=== PATIENT | female | born 2000 | race Caucasian/White ===

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

== ENCOUNTER → 2023-07-04 | Outpatient (CLI) | payer BC ==
[2023-07-04 18:08] LABS: Cat Epith & Dander IgE <0.10 kU/L; Dog Dander IgE <0.10 kU/L; Egg White IgE <0.10 kU/L; Peanut IgE <0.10 kU/L; Shrimp IgE <0.10 kU/L; Soybean IgE <0.10 kU/L
[2023-07-05 14:06] LABS: Carrot IgE <0.10 kU/L (<0.10); Carrot IgE Class CLASS 0; Pea IgE (Grn) <0.10 kU/L (<0.10); Pea(Grn) IgE Class CLASS 0; Pork IgE Class CLASS 0; Salmon IgE <0.10 kU/L (<0.10); Salmon IgE Class CLASS 0
[2023-07-05 14:07] LABS: Avocado Class CLASS 0; Oat IgE Class CLASS 0
[2023-07-05 14:08] LABS: Banana IgE Class CLASS 0; Green Bean IgE <0.10 kU/L (<0.10); Green Bean IgE Class CLASS 0; Latex IgE Class CLASS 0
== END | disposition home or self-care (01) ==
LOC: LABWHC1 07:57
PROVIDERS: ATTEND Allergy & Immunology
DX: K21.9 Gastro-esophageal reflux disease without esophagitis (principal); R10.9 Unspecified abdominal pain; R11.10 Vomiting, unspecified
CPT/HCPCS: 36415; 82784; 83516; 86003

== ENCOUNTER 2023-08-08 19:56 | Emergency (ER) | payer BC ==
--- NOTE | 2023-08-08 20:22 | ED ---
General Adult HPI - General Chief complaint: Extremity Injury, Upper Stated complaint: Fall, L Elbow Injury Time Seen by Provider: 08/08/23 20:08 Source: patient, RN notes reviewed, old records reviewed Mode of arrival: ambulatory Limitations: no limitations - History of Present Illness Initial comments: 22-year-old female with slip and fall on ice with left elbow injury. Patient fell directly onto the left elbow, no other injury reported - Related Data Home Medications Medication Instructions Recorded Confirmed Control 1 tab PO DAILY 07/10/16 Melatonin 3 mg PO HS PRN 07/10/16 07/10/16 Previous Rx's Medication Instructions Recorded HYDROcodone/APAP 5-325MG [H[place] 5] 1 - 2 each PO Q4H PRN #20 tab 07/10/16 Allergies Allergy/AdvReac Type Severity Reaction Status Date / Time CERTAIN FOODS AdvReac Diarrhea Uncoded 08/08/23 20:12 SEASONAL AdvReac Cough Uncoded 08/08/23 20:12 Review of Systems ROS Statement: Those systems with pertinent positive or pertinent negative responses have been documented in the HPI. ROS Other: All systems not noted in ROS Statement are negative. Past Medical History Additional Past Medical History / Comment(s): THYROGLOSAL DUCT CYST AT 8 MO. OF AGE. History of Any Multi-Drug Resistant Organisms: MRSA Date of last positivie culture/infection: 05/15/23 MDRO Source:: Buttock Additional Past Surgical History / Comment(s): THYROGLOSAL DUCT CYST AT 8 MO. OLD Past Anesthesia/Blood Transfusion Reactions: No Reported Reaction Past Psychological History: Anxiety, Depression Smoking Status: Never smoker Past Alcohol Use History: None Reported Past Drug Use History: Marijuana General Exam Limitations: no limitations General appearance: alert, in no apparent distress Head exam: Present: atraumatic, normocephalic Eye exam: Present: normal appearance, PERRL Neck exam: Present: normal inspection. Absent: tenderness, meningismus Respiratory exam: Present: normal lung sounds bilaterally. Absent: respiratory distress, wheezes Cardiovascular Exam: Present: regular rate, normal rhythm GI/Abdominal exam: Present: soft. Absent: distended, tenderness Extremities exam: Present: full ROM, tenderness (Ecchymosis over the left elbow, distal pulses intact) Neurological exam: Present: alert, oriented X3 Psychiatric exam: Present: normal affect, normal mood Skin exam: Present: warm, dry, intact. Absent: cyanosis, diaphoretic Course Vital Signs 08/08/23 20:10 Temperature 98.7 F Pulse Rate 83 Respiratory 18 Rate Blood Pressure 123/78 O2 Sat by Pulse 98 Oximetry Medical Decision Making - Medical Decision Making Was pt. sent in by a medical professional or institution (, [facility], PROVIDER SERVICE REPRESENTATIVE, urgent care, hospital, or [facility]...) When possible be specific @ -No Did you speak to anyone other than the patient for history (EMS, parent, family, police, friend...)? What history was obtained from this source @ -No Did you review nursing and triage notes (agree or disagree)? Why? @ -I reviewed and agree with nursing and triage notes Were old charts reviewed (outside hosp., previous admission, EMS record, old EKG, old radiological studies, urgent care reports/EKG's, [facility] records)? Report findings @ -No old charts were reviewed Differential Diagnosis (chest pain, altered mental status, abdominal pain women, abdominal pain men, vaginal bleeding, weakness, fever, dyspnea, syncope, headache, dizziness, GI bleed, back pain, seizure, CVA, palpatations, mental health, musculoskeletal)? @ -Differential Musculoskeletal Muscular strain, contusion, ligament sprain, fracture, arthritis, septic arthritis, bursitis, cellulitis, muscle spasm, nerve compression, DVT, arterial occlusion, herpes zoster, electrolyte abnormality, tumor.... This is not meant to be in all inclusive list EKG interpreted by me (3pts min.). @ -As above X-rays interpreted by me (1pt min.). @ X-ray of the left elbow is negative for displaced fracture CT interpreted by me (1pt min.). @ -None done U/S interpreted by me (1pt. min.). @ -None done What testing was considered but not performed or refused? (CT, X-rays, U/S, labs)? Why? @ -None What meds were considered but not given or refused? Why? @ -None Did you discuss the management of the patient with other professionals (professionals i.e. TIA Gooden, PROVIDER SERVICE REPRESENTATIVE, lab, RT, psych nurse, social media designer, sap architect, teacher, biological technical officer, leather case finisher)? Give summary @ -No Was smoking cessation discussed for >3mins.? @ -No Was critical care preformed (if so, how long)? @ -No Were there social determinants of health that impacted care today? How? (Homelessness, low income, unemployed, alcoholism, drug addiction, transportation, low edu. Level, literacy, decrease access to med. care, correction, rehab)? @ -No Was there de-escalation of care discussed even if they declined (Discuss DNR or withdrawal of care, Hospice)? DNR status @ -No What co-morbidities impacted this encounter? (DM, HTN, Smoking, COPD, CAD, Cancer, CVA, ARF, Chemo, Hep., AIDS, mental health diagnosis, sleep apnea, morbid obesity)? @ -None Was patient admitted / discharged? Hospital course, mention meds given and route, prescriptions, significant lab abnormalities, going to OR and other pertinent info. @ -22-year-old female slip and fall with left elbow injury. X-ray negative for displaced fracture or dislocation Undiagnosed new problem with uncertain prognosis? @ -No Drug Therapy requiring intensive monitoring for toxicity (Heparin, Nitro, Insulin, Cardizem)? @ -No Were any procedures done? @ -No Diagnosis/symptom? @ Elbow contusion Acute, or Chronic, or Acute on Chronic? @ -Acute Uncomplicated (without systemic symptoms) or Complicated (systemic symptoms)? @ -default Side effects of treatment? @ -No Exacerbation, Progression, or Severe Exacerbation? @ -No Poses a threat to life or bodily function? How? (Chest pain, [place], [place], pneumonia, PE, COPD, DKA, ARF, appy, cholecystitis, CVA, Diverticulitis, Homicidal, Suicidal, threat to staff... and all critical care pts) @ -No Disposition Clinical Impression: Elbow contusion Disposition: HOME SELF-CARE Condition: Fair Instructions (If sedation given, give patient instructions): Elbow Sprain (ED) Is patient prescribed a controlled substance at d/c from ED?: No Referrals: Tsering Carrillo MD [Primary Care Provider] - 1-2 days Time of Disposition: 20:45
--- NOTE | 2023-08-08 20:45 | XR ---
EXAMINATION TYPE: XR elbow complete LT DATE OF EXAM: 08/08/2023 8:39 PM CLINICAL INDICATION:Female, 22 years old with history of pain; [facility] COMPARISON: None. TECHNIQUE: The left elbow was examined in AP, lateral, and oblique projections. FINDINGS: No evidence of any acute osseous pathology, joint dislocation, or soft tissue swelling is n oted. No evidence of joint effusion is present. IMPRESSION: No evidence of acute fracture.
[2023-08-08 22:04] VITALS: BP 118/68; PULSE 81; RESP 20; TEMP 98
== END 2023-08-08 21:15 | disposition home or self-care (01) ==
LOC: EC 19:56
DX: S50.02XA Contusion of left elbow, initial encounter (principal); F12.90 Cannabis use, unspecified, uncomplicated; Z86.59 Personal history of other mental and behavioral disorders; Z88.8 Allergy status to other drugs, medicaments and biological substances; Z91.018 Allergy to other foods; W00.0XXA Fall on same level due to ice and snow, initial encounter
CPT/HCPCS: 99283